=== PATIENT | female | born 1955 | race American Indian/Alaskan Native ===

== ENCOUNTER 2018-11-03 14:48 | Emergency (ER) | payer MEDICARE ==
[2018-11-03 14:55] VITALS: BP 129/79
[2018-11-03] MEDS ORDERED: IBUPROFEN PO ONE (15:50)
--- NOTE | 2018-11-03 17:28 | Vascular Lab Report ---
PROCEDURE: VL VENOUS DUPLEX LE RT TECHNIQUE: Grayscale, color flow and Doppler waveform imaging of the deep venous structures of the r ight lower extremity from the common femoral vein to the posterior tibial and peroneal veins and of t he deep venous structures of the left lower extremity from the common femoral vein to the superficial femoral vein. HISTORY: worsening right thigh pain COMPARISONS: None FINDINGS: There is demonstration of normal compression and normal phasic flow in the deep venous structures of the right lower extremity from the common femoral vein to the popliteal vein. There is demonstration of normal compression and flow in the right posterior tibial and peroneal vein s. There is demonstration of normal compression and normal phasic flow in the left common femoral and murray perficial femoral veins. IMPRESSION: 1. No ultrasound evidence of deep venous thrombosis in the right lower extremity nor in the proximal left lower extremity. This document is electronically signed by Josephine Toure MD., November 03 2018 05:26:02 PM ET
[2018-11-03] MEDS ORDERED: NORCO 7.5/325 PO ONE (17:50)
--- NOTE | 2018-11-03 18:10 | Emergency Department Report ---
ED Extremity Problem HPI - General Chief complaint: Extremity Injury, Lower Stated complaint: PULLED MUSCLE ON (R) THIGH Time Seen by Provider: 11/03/18 15:35 Source: patient Mode of arrival: Ambulatory Limitations: No Limitations - History of Present Illness Initial comments: Patient is a 63-year-old asthmatic female who is complaining of some right thigh pain started anterior but now is posterior as well. This occurred approximately one week ago. Patient denies any trauma slip falls or direct injury. Patient states has been no chest pain shortness of breath. Patient was told by her primary doctor she had some muscle strain however the patient does not remember doing anything that would've strained muscle. Severity scale (0 -10): 7 Quality: aching Consistency: constant Improves with: nothing Worsens with: walking, palpation - Related Data Previous Rx's Medication Instructions Recorded Last Taken Type Ibuprofen [Ibu] 600 mg PO Q6HR PRN #20 tablet 11/03/18 Unknown Rx methOCARBAMOL [Robaxin TAB] 500 mg PO Q6H PRN #14 tablet 11/03/18 Unknown Rx traMADol [Ultram] 50 mg PO Q6HR PRN #12 tablet 11/03/18 Unknown Rx Allergies Allergy/AdvReac Type Severity Reaction Status Date / Time No Known Allergies Allergy Unverified 11/03/18 14:49 ED Review of Systems ROS: Stated complaint: PULLED MUSCLE ON (R) THIGH Other details as noted in HPI Comment: All other systems reviewed and negative ED Past Medical Hx - Past Medical History Hx Hypertension: Yes Hx Diabetes: Yes Additional medical history: HIGH CHOLESTROL - Surgical History Additional Surgical History: HYSTO RIGHT KNEE SURGERY C SECTION - Social History Smoking Status: Never Smoker Substance Use Type: None - Medications Home Medications: Home Medications Medication Instructions Recorded Confirmed Last Taken Type Ibuprofen [Ibu] 600 mg PO Q6HR PRN #20 tablet 11/03/18 Unknown Rx methOCARBAMOL [Robaxin TAB] 500 mg PO Q6H PRN #14 tablet 11/03/18 Unknown Rx traMADol [Ultram] 50 mg PO Q6HR PRN #12 tablet 11/03/18 Unknown Rx ED Physical Exam - General Limitations: No Limitations General appearance: alert, in no apparent distress - Head Head exam: Present: atraumatic, normocephalic - Eye Eye exam: Present: normal appearance. Absent: PERRL, EOMI - ENT ENT exam: Present: mucous membranes moist - Neck Neck exam: Present: normal inspection - Respiratory Respiratory exam: Present: normal lung sounds bilaterally. Absent: respiratory distress, wheezes, rales, rhonchi - Cardiovascular Cardiovascular Exam: Present: regular rate, normal rhythm. Absent: systolic murmur, diastolic murmur, rubs, gallop - GI/Abdominal GI/Abdominal exam: Present: soft, normal bowel sounds. Absent: distended, tenderness, guarding, rebound, rigid - Extremities Exam Extremities exam: Present: normal inspection, tenderness (to the right thigh. There is no erythema rash swelling present.) - Back Exam Back exam: Present: normal inspection - Neurological Exam Neurological exam: Present: alert, oriented X3 - Psychiatric Psychiatric exam: Present: normal affect, normal mood - Skin Skin exam: Present: warm, dry, intact, normal color. Absent: rash ED Course Vital Signs 11/03/18 11/03/18 14:54 15:57 Temperature 98.3 F Pulse Rate 91 H Respiratory 18 18 Rate Blood Pressure 129/79 [Left] O2 Sat by Pulse 97 Oximetry ED Medical Decision Making - Radiology Data Ultrasound of the right lower extremity using Doppler shows no acute DVT at this time. Critical care attestation.: If time is entered above; I have spent that time in minutes in the direct care of this critically ill patient, excluding procedure time. ED Disposition Clinical Impression: Muscle strain Disposition: DC-01 TO HOME OR SELFCARE Is pt being admited?: No Does the pt Need Aspirin: No Condition: Stable Instructions: Muscle Strain (ED) Referrals: JAYNE HARO MD [Staff Physician] - 3-5 Days Time of Disposition: 18:12
== END 2018-11-03 18:30 | disposition home or self-care (01) ==
LOC: ED 14:48
DX: S76.911A Strain of unspecified muscles, fascia and tendons at thigh level, right thigh, initial encounter (principal); I10 Essential (primary) hypertension; E11.9 Type 2 diabetes mellitus without complications; E78.00 Pure hypercholesterolemia, unspecified; Z90.710 Acquired absence of both cervix and uterus; X58.XXXA Exposure to other specified factors, initial encounter; Y93.89 Activity, other specified; Y92.89 Other specified places as the place of occurrence of the external cause; Y99.8 Other external cause status